=== PATIENT | male | born 1960 | race Two or more races ===

== ENCOUNTER 2019-03-26 10:00 | Outpatient (RCR) ==
--- NOTE | 2019-03-05 14:48 | RS.OPPTEV2 ---
Date of Note: 03/04/19 Visit #: 1 Number of visits approved by Insurance: pending Date of Evaluation: 03/04/19 Payer Source: Medicaid Date of Onset/Injury/Change in Status: 03/04/19 Surgery Performed?: Yes (lumbar fusion ) Date of Procedure: 01/12/19 (2 part 01/14/19) Treatment Diagnosis: low back pain History of Condition/Mechanism of Injury:: pt underwent lumbar fusion on 01/12 and 01/14/19 after suffering an injury at work lifing causing injury to low back in 09/2018. Prior Level of Function.....Patient was independent with: ADL's, Self Care, Work /Vocation, Community Integration/Access Functional Limitations: Sleep, Sitting, Standing, Bending, Squatting, Ambulation , Community Access/Integration Current Subjective/complaints:: pt reports he is recovering from lumbar fusion surgery and continues to have lumbar pain. pt states he also wants to strengthen his LE's because he says they have been weak since work injury. Treatment Side (optional): N/A Medical History Medical History: Unremarkable Surgical History: Lumbar Spine Surgical History Comments:: L LE ORIF s/p fx Smoking Status: Current some day smoker Hx Home Medications: oxycodone Patient's Goals: decrease low back pain Pain Assessment - Pain Description Pain Location: lumbar area ( upper lumbar) Pain Description: Aching Current Pain Intensity: 4/10 Functional Outcome Measure Oswestry LBP: 23 - G Codes & Severity Modifier G Codes & Modifier: n/a Source of G Code score: n/a Observation - Observation Inspection: incision healed no open areas Posture: Forward Head, Rounded Shoulders, Increased Thoracic Kyphosis, Decreased Lumbar Lordosis Handedness: Right Gait - Gait Pattern Gait Comments: pt amb without AD, with flexed posture with decreased heel strike and antalgic gait due to old injury to R LE. General Range of Motion: BUE WFL's. BLE WFL's Muscle Strength: BUE 5/5. LLE hip flex 4+/5 with min pain, knee flex/ext 5/5, ankle DF/PF 5/5. RLE hip flex 4-/5, knee flex/ext 4-/5, ankle DF/PF 4/5 - ROM Lumbar Flexion: Hand reach to Mid-Thighs Sidebending to Left: Reach to Lateral Joint Line Sidebending to Right: Reach to Lateral Joint Line Lumbar Spine ROM Limitations: Soft Tissue Tightness, Muscle Weakness, Pain Comments: AROM limited, pt with recent lumbar fusion - Strength Trunk Extension: 4- Good- Trunk Flexion: 3- Fair- Trunk Lateral Flexion: 3- Fair- Trunk Rotation: 3- Fair- - Special Tests NOMI Test: Negative Left, Negative Right SLR Test: Negative Left, Negative Right SI Joint Compression: Negative Comments: pt with pain with lumbar pain without radiating pain. Palpation Palpation Findings: Tenderness, Trigger Point, Muscle Guarding Comments:: pt presents with muscle guarding lumbar paraspinal with trigger point noted to R paraspinal. Sensation - Sensation Right Upper Extremity: Intact/Normal Left Upper Extremity: Intact/Normal Right Lower Extremity: Intact/Normal Left Lower Extremity: Intact/Normal Balance - Sitting Balance Static Sitting Balance: Normal Dynamic Sitting Balance: Normal - Standing Balance Static Standing Balance: Good Dynamic Standing Balance: Good - Treatment Modality: Electrical Stim Unattended Parameters/Method Applied: IFC x 20 mins at 10ma Treatment Area: lumbar spine Patient Position: Prone - Heat/Cryotherapy Treatment: Cryotherapy Comments:: lumbar spine with IFC Interventions - Exercise/Activities/Manual Therapy Exercises/Activities: pt performed pelvic tilts, isometric hip add,gentle hamstring stretch Manual Therapy: n/a HOME EXERCISE PROGRAM: pt given written HEP including pelvic tilt, hamstring stretch and well as isometric hip add - Charges Timed Code Treatment Minutes: 43 Total Treatment Time: 61 Procedures billed for this date of service:: eval low, estim unattended, cp EVALUATION COMPLEXITY LEVEL EVALUATION COMPLEXITY LEVEL: HISTORY: Low, EXAM OF BODY SYSTEMS: Low, CLINICAL PRESENTATION: Low, CLINICAL DECISION MAKING: Low Assessment Assessment: pt presents with lumbar pain as well as decreased lumbar ROM, decreased strength BLE. Feel pt would benefit from skilled PT for therex for back stabilization ex as well as gentle hamstring stretches as well as modalities to decrease pain and inflammation. Patient Education: Home Exercise Program, Education of Plan of Care Rehab Potential: Good Short Term Goals Goal #1: pt independent with HEP Goal to be met by: 03/18/19 Goal #2: pt report decreased low back pain < 4/10 Goal to be met by: 03/18/19 Goal #3: Improved BLE strength 4-/5 to 4/5 Goal to be met by: 03/18/19 Goal #4: Improve lumbar ROM WFL's w less pain Goal to be met by: 03/18/19 [facility] Goals Goal #1: pt report increased ability to perform normal household duties w less pain Goal to be met by: 04/01/19 Goal #2: pt hamstring flexibility WFL's Goal to be met by: 04/01/19 Goal #3: Decrease pain <3/10 Goal to be met by: 04/01/19 Plan - Treatment to be Provided Procedures: Therapeutic Exercises, Therapeutic Activity, Manual Therapy, Massage , Patient Education Modalities: Electrical Stimulation, Cryotherapy, Hot Packs Other:: No traction due to fusion - Treatment Plan Frequency: 2 X week Duration: 4 weeks Dates of Fpc Goals: 04/01/19 Expiration date of current Insurance Approval:: pending - Treatment Code (1) Low back pain Code(s): M54.5 - LOW BACK PAIN Qualifiers: Chronicity: chronic Back pain laterality: unspecified Sciatica presence: without sciatica Qualified Code(s): M54.5 - Low back pain; G89.29 - Other chronic pain (2) Muscle weakness Code(s): M62.81 - MUSCLE WEAKNESS (GENERALIZED) (3) S/P lumbar fusion Code(s): Z98.1 - ARTHRODESIS STATUS
--- NOTE | 2019-03-06 12:04 | RS.OPPTDN ---
Subjective Date of Note: 03/06/19 Visit #: 2 Number of visits approved by Insurance: pending Date of Evaluation: 03/04/19 Payer Source: Medicaid Treatment Diagnosis: low back pain Current Subjective/complaints:: Patient reports last treatment of CP and Estim helped reduce his pain level. States he is working on HEP. Reports pain at 3-4/ 10 following treatment is a good range for him. States he does not expect to be pain-free. Pain Assessment - Pain Description Pain Location: lowback Pain Description: Aching Current Pain Intensity: 3-4/10 following treatment and exercise Worst Pain Intensity: 5-6/10 average - Treatment Modality: Electrical Stim Unattended Parameters/Method Applied: [id number] HVGC to 230p.v. with 4 pads and CP prior to EX. Each channel ran from upper lumbar to S-I joints. Patient Position: Prone - Heat/Cryotherapy Treatment: Cryotherapy (with Estim) Interventions - Exercise/Activities/Manual Therapy Exercises/Activities: Pelvic tilts, isometric hip add, hamstring stretch, SKTC. Isometric hip flexion. Total minutes of Exercise: 17mins Manual Therapy: n/a HOME EXERCISE PROGRAM: pt given written HEP including pelvic tilt, hamstring stretch and well as isometric hip add, isometric hip flexion - Charges Timed Code Treatment Minutes: 17mins Total Treatment Time: 42mins Procedures billed for this date of service:: CP, Estim unattended, EX Assessment: Patient responded well to treatment with report of reduction in pain. Patient Education: Body/Joint mechanics, Home Exercise Program, Activity Modification Patient demonstrates compliance with HEP?: Yes Short Term Goals Goal #1: pt independent with HEP Goal to be met by: 03/18/19 Progress towards Goal:: Progressing Goal #2: pt report decreased low back pain < 4/10 Goal to be met by: 03/18/19 Progress towards Goal:: Progressing Goal #3: Improved BLE strength 4-/5 to 4/5 Goal to be met by: 03/18/19 Goal #4: Improve lumbar ROM WFL's w less pain Goal to be met by: 03/18/19 [facility] Goals Goal #1: pt report increased ability to perform normal household duties w less pain Goal to be met by: 04/01/19 Goal #2: pt hamstring flexibility WFL's Goal to be met by: 04/01/19 Goal #3: Decrease pain <3/10 Goal to be met by: 04/01/19 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
--- NOTE | 2019-03-10 10:27 | RS.OPPTDN ---
Subjective Date of Note: 03/10/19 Visit #: 3 Number of visits approved by Insurance: pending Date of Evaluation: 03/04/19 Payer Source: Medicaid Treatment Diagnosis: low back pain Current Subjective/complaints:: Patient reports a flaair-up of pain today, including right anterior thigh. States he is unsure of what has caused the increase in pain,. States he has been working on stretches. Pain Assessment - Pain Description Pain Location: lowback, R>L Current Pain Intensity: 4/10 - Treatment Modality: Electrical Stim Unattended Parameters/Method Applied: [id number] HVGC to 200-210p.v. along bilateral lumbar paraspinals with CP prior to EX. Patient Position: Prone - Heat/Cryotherapy Treatment: Cryotherapy (with Estim ) Interventions - Exercise/Activities/Manual Therapy Exercises/Activities: Assisted stretching of hamstring stretch, piriformis, SKTC , and LTR. Isometric hip flexion. Isometric hip add with pillow. Isometric abdominal sets and pelvic tilts. Patient education of home safety and reviewed HEP. Patient kayla copy of additional exercises. Total minutes of Exercise: 16mins Manual Therapy: n/a HOME EXERCISE PROGRAM: pt given written HEP including pelvic tilt, hamstring stretch and well as isometric hip add, isometric hip flexion, - Charges Timed Code Treatment Minutes: 16mins Total Treatment Time: 40mins Procedures billed for this date of service:: HP, Estim unattended, EX Assessment: Patient having a flair-up of back and right anterior thigh pain today. Patient Education: Body/Joint mechanics, Home Exercise Program, Home Safety Patient demonstrates compliance with HEP?: Yes Short Term Goals Goal #1: pt independent with HEP Goal to be met by: 03/18/19 Progress towards Goal:: Progressing Goal #2: pt report decreased low back pain < 4/10 Goal to be met by: 03/18/19 Progress towards Goal:: Progressing Goal #3: Improved BLE strength 4-/5 to 4/5 Goal to be met by: 03/18/19 Goal #4: Improve lumbar ROM WFL's w less pain Goal to be met by: 03/18/19 Retirement Goals Goal #1: pt report increased ability to perform normal household duties w less pain Goal to be met by: 04/01/19 Goal #2: pt hamstring flexibility WFL's Goal to be met by: 04/01/19 Goal #3: Decrease pain <3/10 Goal to be met by: 04/01/19 Plan Dates of Lift Supervisor Goals: 04/01/19 Expiration date of current Insurance Approval:: 04/01/19 PLAN: Continue modalities and progress exercise to reduce pain and increase functional activity level.
--- NOTE | 2019-03-12 12:05 | RS.OPPTDN ---
Subjective Date of Note: 03/12/19 Visit #: 4 Number of visits approved by Insurance: pending Date of Evaluation: 03/04/19 Payer Source: Medicaid Treatment Diagnosis: low back pain Current Subjective/complaints:: Patient reports he is feeling a little better today. States back is tight. Also reports discomfort with hamstring stretching due to tightness. Pain Assessment - Pain Description Pain Location: lowback Current Pain Intensity: mod - Treatment Modality: Electrical Stim Unattended Parameters/Method Applied: [id number] HVGC to 165p.v. 4 large pads to the bilateral lumbar paraspinals with CP prior to EX. Patient Position: Prone - Heat/Cryotherapy Treatment: Cryotherapy (with Estim ) Interventions - Exercise/Activities/Manual Therapy Exercises/Activities: Prone alt hip extension, prone scap retraction and short upper body lift. Assisted stretching of hamstring stretch, piriformis, SKTC, and LTR. Isometric hip flexion. Isometric hip add with pillow. Isometric abdominal sets. Discussion of alternate positions for hamstring stretching. Patient given copy of prone exercises. Total minutes of Exercise: 19mins Manual Therapy: n/a HOME EXERCISE PROGRAM: pt given written HEP including pelvic tilt, hamstring stretch and well as isometric hip add, isometric hip flexion, prone alt hip ext , prone scap retraction/upper body lift - Charges Timed Code Treatment Minutes: 19mins Total Treatment Time: 41mins Procedures billed for this date of service:: CP, Estim unattended, EX Assessment: Patient progressing with exercise. He is attentive to all patient education and appears to be working on HEP. Patient Education: Body/Joint mechanics, Home Exercise Program, Home Safety, Activity Modification Patient demonstrates compliance with HEP?: Yes Short Term Goals Goal #1: pt independent with HEP Goal to be met by: 03/18/19 Progress towards Goal:: Partially Met Goal #2: pt report decreased low back pain < 4/10 Goal to be met by: 03/18/19 Progress towards Goal:: Progressing Goal #3: Improved BLE strength 4-/5 to 4/5 Goal to be met by: 03/18/19 Goal #4: Improve lumbar ROM WFL's w less pain Goal to be met by: 03/18/19 Speedometer Inspector Goals Goal #1: pt report increased ability to perform normal household duties w less pain Goal to be met by: 04/01/19 Goal #2: pt hamstring flexibility WFL's Goal to be met by: 04/01/19 Goal #3: Decrease pain <3/10 Goal to be met by: 04/01/19 Plan Dates of Long-Term Goals: 04/01/19 Expiration date of current Insurance Approval:: 04/01/19 PLAN: Continue modalities and progress exercise to redcue pain and increase functional activity level.
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
--- NOTE | 2019-03-19 11:20 | RS.OPPTDN ---
Subjective Date of Note: 03/19/19 Visit #: 6 Number of visits approved by Insurance: na Date of Evaluation: 03/04/19 Payer Source: Medicaid Treatment Diagnosis: low back pain Current Subjective/complaints:: Patient reports pain level is at 4/10 today, which he is happy about. States he can live with pain at that level. States he is working on HEP. Pain Assessment - Pain Description Pain Location: lowback Current Pain Intensity: 4/10 - Treatment Modality: Electrical Stim Unattended Parameters/Method Applied: [id number] HVGC to 155p.v. with 4 larges pads along paraspinals with CP prior to EX. Patient Position: Prone - Heat/Cryotherapy Treatment: Cryotherapy Interventions - Exercise/Activities/Manual Therapy Exercises/Activities: Prone alt hip extension, prone scap retraction and short upper body lift. Assisted stretching of hamstring stretch, piriformis, SKTC, and LTR. Isometric hip flexion. Isometric hip add with pillow. Isometric abdominal sets. Worked on pelvic tilt but patient having difficulty due to decreased lumbar spine mobility. Began standing resisted scapular retraction with green theraband. Patient given verbal and tactile cue throughout exercise session for proper muscle engagement and posture. Total minutes of Exercise: 21mins Manual Therapy: n/a HOME EXERCISE PROGRAM: pt given written HEP including pelvic tilt, hamstring stretch and well as isometric hip add, isometric hip flexion, prone alt hip ext , prone scap retraction/upper body lift, standing resisted scapular retraction with green theraband - Charges Timed Code Treatment Minutes: 21mins Total Treatment Time: 41mins Procedures billed for this date of service:: CP, Estim unattended, EX Assessment: Patient progressing with HEP and reporting improvement with pain level. Patient Education: Body/Joint mechanics, Home Exercise Program, Home Safety, Activity Modification Patient demonstrates compliance with HEP?: Yes Short Term Goals Goal #1: pt independent with HEP Goal to be met by: 03/18/19 Progress towards Goal:: Partially Met Goal #2: pt report decreased low back pain < 4/10 Goal to be met by: 03/18/19 Progress towards Goal:: Met Goal #3: Improved BLE strength 4-/5 to 4/5 Goal to be met by: 03/18/19 Progress towards Goal:: Progressing Goal #4: Improve lumbar ROM WFL's w less pain Goal to be met by: 03/18/19 Progress towards Goal:: Progressing [facility] Goals Goal #1: pt report increased ability to perform normal household duties w less pain Goal to be met by: 04/01/19 Goal #2: pt hamstring flexibility WFL's Goal to be met by: 04/01/19 Progress towards goal: Progressing Goal #3: Decrease pain <3/10 Goal to be met by: 04/01/19 Plan Dates of Vp Integrity Goals: 04/01/19 Expiration date of current Insurance Approval:: 04/01/19 PLAN: Continue modalities and progress exercise to reduce pain and increase functional activity level.
--- NOTE | 2019-03-24 11:28 | RS.OPPTDN ---
Subjective Date of Note: 03/24/19 Visit #: 7 Number of visits approved by Insurance: pending Date of Evaluation: 03/04/19 Payer Source: Medicaid Treatment Diagnosis: low back pain Current Subjective/complaints:: Patient reports weather continues to cause an increase in his pain level. States pain at 5/10 prior to treatment and reduced down to 3-4/10 with treatment today. Pain Assessment - Pain Description Pain Location: lowback Pain Description: Aching Current Pain Intensity: 5/10 prior to, 3-4/10 following treatment Other Comments regarding Pain:: States 3-4/10 is about the best pain rating her can hope for. States this is a level he can live with. - Treatment Modality: Electrical Stim Unattended Parameters/Method Applied: [id number] HVGC to 145p.v. with 4 large pads to bilateral lumbar paraspinals with CP. Patient Position: Prone - Heat/Cryotherapy Treatment: Cryotherapy (with Estim ) Interventions - Exercise/Activities/Manual Therapy Exercises/Activities: Assisted stretching of hamstring stretch, piriformis, SKTC , and LTR. Isometric hip flexion. Isometric hip add with pillow. Isometric abdominal sets. Worked on pelvic tilt with continued verbal and tactile cues, patient with difficulty due to decreased lumbar ROM. Isometric LTR. Patient given verbal and tactile cue throughout exercise session for proper muscle engagement and posture. Total minutes of Exercise: 17mins Manual Therapy: n/a HOME EXERCISE PROGRAM: pt given written HEP including pelvic tilt, hamstring stretch and well as isometric hip add, isometric hip flexion, prone alt hip ext , prone scap retraction/upper body lift, standing resisted scapular retraction with green theraband - Charges Timed Code Treatment Minutes: 17mins Total Treatment Time: 43mins Procedures billed for this date of service:: CP, Estim unattended, EX Assessment: Patient progress slow at this point. He is working on HEP as instructed and appears motivated to continue. Patient Education: Body/Joint mechanics, Home Exercise Program, Activity Modification Comments: Patient education of dx, body mechanics and safety with ADL's. Patient demonstrates compliance with HEP?: Yes Short Term Goals Goal #1: pt independent with HEP Goal to be met by: 03/18/19 Progress towards Goal:: Partially Met Goal #2: pt report decreased low back pain < 4/10 Goal to be met by: 03/18/19 Progress towards Goal:: Met Goal #3: Improved BLE strength 4-/5 to 4/5 Goal to be met by: 03/18/19 Progress towards Goal:: Met Goal #4: Improve lumbar ROM WFL's w less pain Goal to be met by: 03/18/19 Progress towards Goal:: Progressing Distribution Field Technician Goals Goal #1: pt report increased ability to perform normal household duties w less pain Goal to be met by: 04/01/19 Progress towards goal: Progressing Goal #2: pt hamstring flexibility WFL's Goal to be met by: 04/01/19 Progress towards goal: Progressing Goal #3: Decrease pain <3/10 Goal to be met by: 04/01/19 Plan Dates of Skilled Nursing Goals: 04/01/19 Expiration date of current Insurance Approval:: 04/01/19 PLAN: Progress with exercise to redcue pain and increase functional activity level.
--- NOTE | 2019-03-26 12:09 | RS.OPPTDN ---
Subjective Date of Note: 03/26/19 Visit #: 8 Number of visits approved by Insurance: pending Date of Evaluation: 03/04/19 Payer Source: Medicaid Treatment Diagnosis: low back pain Current Subjective/complaints:: Patient reports seeing slight improvement in strength and mobility with exercise. States he continues to have flair-ups of back pain and is happy when his pain level is at 3-4/10. States he will continue HEP and return to his physician for a follow-up the first week of April. Pain Assessment - Pain Description Pain Location: lowback Current Pain Intensity: 5/10 today Other Comments regarding Pain:: Reports he is having a flair-up of pain today that he feels has been aggravated due to his bilateral knee pain and change in his gait. - Treatment Modality: Electrical Stim Unattended Parameters/Method Applied: [id number] HVGC to 145p.v. with 4 large pads to the bilateral lumbar parapsinals with CP. Patient Position: Prone - Heat/Cryotherapy Treatment: Cryotherapy (with Estim ) Interventions - Exercise/Activities/Manual Therapy Exercises/Activities: Assisted stretching of hamstring stretch, piriformis, SKTC , and LTR. Isometric hip flexion. Isometric hip add with pillow. Isometric abdominal sets. Pelvic tilt and bridge. Isometric LTR. Green theraband resisted hip abd in hook-lying. Patient given verbal and tactile cue throughout exercise session for continued patient education. Patient given blue theraband for progression of resistive exercise with HEP. Total minutes of Exercise: 18mins Manual Therapy: n/a HOME EXERCISE PROGRAM: pt given written HEP including pelvic tilt, hamstring stretch and well as isometric hip add, isometric hip flexion, prone alt hip ext , prone scap retraction/upper body lift, standing resisted scapular retraction with green theraband - Charges Timed Code Treatment Minutes: 18mins Total Treatment Time: 42mins Procedures billed for this date of service:: CP, Estim unattended, EX Assessment: Patient has made some progress but is reaching a plateau in progress. He is independent with HEP and will continue. Patient Education: Education of diagnosis, Body/Joint mechanics, Home Exercise Program, Home Safety, Activity Modification Comments: Reviewed and completed all patient education. Patient demonstrates compliance with HEP?: Yes Short Term Goals Goal #1: pt independent with HEP Goal to be met by: 03/18/19 Progress towards Goal:: Met Goal #2: pt report decreased low back pain < 4/10 Goal to be met by: 03/18/19 Progress towards Goal:: Met Comments:: Had previously met Goal #3: Improved BLE strength 4-/5 to 4/5 Goal to be met by: 03/18/19 Progress towards Goal:: Met Goal #4: Improve lumbar ROM WFL's w less pain Goal to be met by: 03/18/19 Progress towards Goal:: Partially Met Fpc Goals Goal #1: pt report increased ability to perform normal household duties w less pain Goal to be met by: 04/01/19 Progress towards goal: Met Goal #2: pt hamstring flexibility WFL's Goal to be met by: 04/01/19 Progress towards goal: Met Goal #3: Decrease pain <3/10 Goal to be met by: 04/01/19 Progress towards goal: Partially Met Comments: Reports pain at 3-4/10 most of the time. Plan Dates of Ceo And Founder Goals: 04/01/19 Expiration date of current Insurance Approval:: 04/01/19 PLAN: Discharge with HEP.
--- NOTE | 2019-04-01 15:14 | RS.QUICKDC ---
Discharge from PT Date of Discharge: 03/26/19 Number of Visits: 8 Reason for Discharge: Patient attended 8 session and reported progress with his light activity level. He was independent with HEP. He met 5 or 7 treatment goals , but continued to report his best pain level was 3-4/10. Patient progress seemed to have stopped. Discharged with HEP.
== END 2019-04-03 23:59 | disposition short-term general hospital (02) ==
PROVIDERS: ATTEND Orthopaedic Surgery Orthopaedic Surgery of the Spine
DX: M54.5 Low back pain (principal)